=== PATIENT | male | born 1990 | race Two or more races ===

== ENCOUNTER 2023-06-02 07:42 | Emergency (ER) | payer MEDICAID, OTHER ==
[~2023-06-02] VITALS: Ht 165.1 cm; Wt 86.7 kg
[2023-06-02 08:52] VITALS: BP 136/71; PULSE 72; RESP 16; TEMP 98.7; O2SAT 98
[2023-06-02] MEDS ORDERED: FLUORESCEIN SOD OPTH TEST STRIP EACHEYE ONE (09:00)
[2023-06-02] MEDS ORDERED: TETRACAINE HCL 0.5% OPTH(EYE) SOLN 4ML EACHEYE ONE (09:00)
[2023-06-02] MEDS ORDERED: ERY05OO OP (09:26)
[2023-06-02] MEDS ORDERED: KETOROLAC TROMETH 60MG/2ML VIAL IM ONE (10:15)
== END 2023-06-02 10:25 | disposition home or self-care (01) ==
LOC: ER 07:42
DX: S05.02XA Injury of conjunctiva and corneal abrasion without foreign body, left eye, initial encounter (principal); H10.33 Unspecified acute conjunctivitis, bilateral; X58.XXXA Exposure to other specified factors, initial encounter; Y93.89 Activity, other specified; Y92.89 Other specified places as the place of occurrence of the external cause; Y99.8 Other external cause status
CPT/HCPCS: 96372; 99283; J1885

== ENCOUNTER 2023-06-06 10:13 | Emergency (ER) | payer MEDICAID ==
[~2023-06-06] VITALS: Ht 172.7 cm; Wt 90.9 kg
[~2023-06-06 10:13] MED LIST: ERY05OO OP
[2023-06-06 10:53] VITALS: BP 153/90; PULSE 60; RESP 18; TEMP 97.9; O2SAT 100
[2023-06-06] MEDS ORDERED: CIPR0.3S67 OP (11:09)
[2023-06-06] MEDS ORDERED: HYDROcodone-ACET 5/325MG TAB PO ONE (11:15)
== END 2023-06-06 11:21 | disposition home or self-care (01) ==
LOC: EDBD 10:13 → ER 10:13
DX: H10.32 Unspecified acute conjunctivitis, left eye (principal); S05.02XD Injury of conjunctiva and corneal abrasion without foreign body, left eye, subsequent encounter; X58.XXXD Exposure to other specified factors, subsequent encounter